=== PATIENT | female | born 1995 | race Caucasian/White ===

== ENCOUNTER 2017-08-29 11:42 | Emergency (ER) | payer BC, MEDICAID ==
--- NOTE | 2017-08-29 11:34 | EDM.PDOCBH ---
ED HPI GENERAL MEDICAL PROBLEM - General Stated Complaint: SUCIDIAL Time Seen by Provider: 08/29/17 10:25 Source of Information: Reports: Patient, EMS History Limitations: Reports: No Limitations - History of Present Illness INITIAL COMMENTS - FREE TEXT/NARRATIVE: 22 y.o.w.f came to the ed by EMS after somebody called the EMS pt attempted suicide. Pt took clonidin and Zyquill and wrote 6 letter to family members she wants to end her life. On arrival, pt stated she is nauseated and did not eat anything since last night. She denies any physical issues or acute medical issues. BP 141/97 HR 102 RR 16 Temp 98 F Pulse ox 98% on RA Onset Date: 08/29/17 Onset Time: 08:00 Duration: Hour(s):, Intermittent Location: Reports: Generalized Quality: Reports: Other (suicidal attemp) Improves with: Reports: None Worsens with: Reports: None Context: Reports: Other (suicidal attempt) Associated Symptoms: Reports: Other (nausea) Treatments [employer]: Reports: Other (see below) (Zyquil and clonipin OD) - Related Data Allergies Allergy/AdvReac Type Severity Reaction Status Date / Time No Known Allergies Allergy Verified 08/29/17 11:36 Home Meds: Home Meds NK [No Known Home Meds] 08/29/17 [History] ED ROS GENERAL - Review of Systems Review Of Systems: See Below Constitutional: Reports: No Symptoms HEENT: Reports: No Symptoms Respiratory: Reports: No Symptoms Cardiovascular: Reports: No Symptoms Endocrine: Reports: No Symptoms GI/Abdominal: Reports: No Symptoms : Reports: No Symptoms Musculoskeletal: Reports: No Symptoms Skin: Reports: No Symptoms Neurological: Reports: No Symptoms Psychiatric: Reports: Suicidal Ideation (attempt) Hematologic/Lymphatic: Reports: No Symptoms Immunologic: Reports: No Symptoms ED EXAM, BEHAVIORAL HEALTH - Physical Exam Exam: See Below Exam Limited By: No Limitations General Appearance: Alert, WD/WN, No Apparent Distress Eye Exam: Bilateral Eye: Normal Inspection Ears: Normal External Exam, Normal Canal Nose: Normal Inspection, Normal Mucosa Throat/Mouth: Normal Inspection, Normal Lips, Normal Teeth, Normal Gums, Normal Oropharynx, Normal Voice, No Airway Compromise Head: Atraumatic, Normocephalic Neck: Normal Inspection, Supple, Non-Tender, Full Range of Motion Respiratory/Chest: No Respiratory Distress, Lungs Clear, Normal Breath Sounds, No Accessory Muscle Use, Chest Non-Tender Cardiovascular: Normal Peripheral Pulses, Regular Rate, Rhythm, No Edema, No Gallop, No JVD, No Murmur GI/Abdominal: Normal Bowel Sounds, Soft, Non-Tender, No Organomegaly, No Distention, No Abnormal Bruit, No Mass, Pelvis Stable (Female) Exam: Deferred Rectal (Female) Exam: Deferred Back Exam: Normal Inspection, Full Range of Motion Extremities: Normal Inspection, Normal Range of Motion, Non-Tender, No Pedal Edema, Normal Capillary Refill Neurological: Alert, Normal Mood/Affect, CN II-XII Intact, Normal Cognition, Normal Gait, Normal Reflexes, No Motor/Sensory Deficits, Oriented x 3 Psychiatric: Alert, Normal Cognition, Oriented, Depressed Mood Skin Exam: Warm, Dry, Intact, Normal color, No rash EKG INTERPRETATION EKG Date: 08/29/17 Time: 14:05 Rhythm: NSR Rate (Beats/Min): 75 Hughes: Normal P-Wave: Present QRS: Normal ST-T: Normal QT: Normal Comparison: NA - No Prior EKG COURSE, BEHAVIORAL HEALTH COMP - Course Vital Signs: Last Vital Signs Temp 36.6 C 08/29/17 11:20 Pulse 89 08/29/17 16:00 Resp 12 08/29/17 16:00 BP 93/62 08/29/17 16:00 Pulse Ox 99 08/29/17 16:00 22 y.o.w.f came to the ed by EMS after somebody called the EMS pt attempted suicide. Pt took clonidin. Tylenol#3, Nyquil and Zyquill and wrote 6 letter to family members she wants to end her life. On arrival, pt stated she is nauseated and did not eat anything since last night. She denies any physical issues or acute medical issues. BP 141/97 HR 102 RR 16 Temp 98 F Pulse ox 98 % on RA PE: 22 y, o w f came by EMS after the police was called about a suicidal attempt , feels nauseated, through up after taking the pills. labs: CBC, BMP nl, UA nl, UDS pos for elevated Acetaminophen level and Pos for tricycles Impression: Suicidal attempt, nausea, UDS pos for acetaminophen and Trycyclics Tx: Tara, Pt was put on a 72 hold Consultation: [facility], will look for placement. 1.50pm Poison Control was called by nurse: Repeat Acetaminophen level 4 hours after ingestion (3.15 pm) Plan: Tranfer to [facility] Orders, Labs, Meds: Active Orders 24 hr Category Date Time Status DRUG SCREEN, URINE ALERE [URCHEM] Stat Lab 08/29/17 13:11 Ordered EKG 12 Lead [EK] Routine Ther 08/29/17 13:58 Ordered Laboratory Tests 08/29/17 08/29/17 08/29/17 Range/Units 11:50 11:50 11:50 WBC 8.4 (4.5-12.0) X10-3/uL RBC 5.03 (3.23-5.20) x10(6)uL Hgb 14.3 (11.5-15.5) g/dL Hct 43.2 (30.0-51.3) % MCV 86.0 (80-96) fL MCH 28.4 (27.7-33.6) pg MCHC 33.1 (32.2-35.4) g/dL RDW 13.5 (11.5-15.5) % Plt Count 299 (125-369) X10(3)uL MPV 8.4 (7.4-10.4) fL Neut % (Auto) 76.2 (46-82) % Lymph % (Auto) 13.9 (13-37) % [place] % (Auto) 8.8 (4-12) % Eos % (Auto) 1 (1.0-5.0) % Baso % (Auto) 1 (0-2) % Neut # (Auto) 6.4 (1.6-8.3) # Lymph # (Auto) 1.2 (0.6-5.0) # [place] # (Auto) 0.7 (0.0-1.3) # Eos # (Auto) 0.0 (0.0-0.8) # Baso # (Auto) 0.1 (0.0-0.2) # Sodium 140 (135-145) mmol/L Potassium 3.8 (3.5-5.3) mmol/L Chloride 104 (100-110) mmol/L Carbon Dioxide 24 (21-32) mmol/L BUN 12 (7-18) mg/dL Creatinine 0.8 (0.55-1.02) mg/dL Est Cr Clr Drug Dosing TNP Estimated GFR (MDRD) > 60 (>60) BUN/Creatinine Ratio 15.0 (9-20) Glucose 89 (80-116) mg/dL Calcium 8.9 (8.6-10.2) mg/dL TSH, Ultra Sensitive 1.96 (0.36-3.74) IU/mL Urine Color (YELLOW) Urine Appearance (CLEAR) Urine pH (5.0-6.5) Ur Specific [place] (1.010-1.025) Urine Protein (NEGATIVE) mg/dL Urine Glucose (UA) (NEGATIVE) mg/dL Urine Ketones (NEGATIVE) mg/dL Urine Occult Blood (NEGATIVE) Urine Nitrite (NEGATIVE) Urine Bilirubin (NEGATIVE) Urine Urobilinogen (NEGATIVE) mg/dL Ur Leukocyte Esterase (NEGATIVE) Urine RBC (0) Urine WBC (0) Ur Squamous Epith Cells (NS,R,O) Urine Bacteria (NS) Urine Mucus (NS) Urine HCG, Qual (NEGATIVE) Salicylates < 2.0 L (2.8-20.0) mg/dL Urine Opiates Screen (NEGATIVE) Ur Oxycodone Screen (NEGATIVE) Ur Propoxyphene Screen (NEGATIVE) Acetaminophen 48 H (10-30) ug/mL Ur Barbituates Screen (NEGATIVE) Ur Tricyclics Screen (NEGATIVE) Ur Phencyclidine Scrn (NEGATIVE) Ur Amphetamine Screen (NEGATIVE) Urine MDMA Screen (NEGATIVE) U Benzodiazepines Scrn (NEGATIVE) U Cocaine Metab Screen (NEGATIVE) U Marijuana (THC) Screen (NEGATIVE) Ethyl Alcohol < 0.03 (<0.03) % 08/29/17 08/29/17 08/29/17 Range/Units 13:11 13:11 13:11 WBC (4.5-12.0) X10-3/uL RBC (3.23-5.20) x10(6)uL Hgb (11.5-15.5) g/dL Hct (30.0-51.3) % MCV (80-96) fL MCH (27.7-33.6) pg MCHC (32.2-35.4) g/dL RDW (11.5-15.5) % Plt Count (125-369) X10(3)uL MPV (7.4-10.4) fL Neut % (Auto) (46-82) % Lymph % (Auto) (13-37) % [place] % (Auto) (4-12) % Eos % (Auto) (1.0-5.0) % Baso % (Auto) (0-2) % Neut # (Auto) (1.6-8.3) # Lymph # (Auto) (0.6-5.0) # [place] # (Auto) (0.0-1.3) # Eos # (Auto) (0.0-0.8) # Baso # (Auto) (0.0-0.2) # Sodium (135-145) mmol/L Potassium (3.5-5.3) mmol/L Chloride (100-110) mmol/L Carbon Dioxide (21-32) mmol/L BUN (7-18) mg/dL Creatinine (0.55-1.02) mg/dL Est Cr Clr Drug Dosing Estimated GFR (MDRD) (>60) BUN/Creatinine Ratio (9-20) Glucose (80-116) mg/dL Calcium (8.6-10.2) mg/dL TSH, Ultra Sensitive (0.36-3.74) IU/mL Urine Color Yellow (YELLOW) Urine Appearance Clear (CLEAR) Urine pH 6.5 (5.0-6.5) Ur Specific [place] 1.015 (1.010-1.025) Urine Protein Negative (NEGATIVE) mg/dL Urine Glucose (UA) Normal (NEGATIVE) mg/dL Urine Ketones Negative (NEGATIVE) mg/dL Urine Occult Blood Negative (NEGATIVE) Urine Nitrite Negative (NEGATIVE) Urine Bilirubin Negative (NEGATIVE) Urine Urobilinogen Normal (NEGATIVE) mg/dL Ur Leukocyte Esterase Negative (NEGATIVE) Urine RBC 0-5 (0) Urine WBC 10-20 H (0) Ur Squamous Epith Cells Moderate H (NS,R,O) Urine Bacteria Occasional H (NS) Urine Mucus Many H (NS) Urine HCG, Qual Negative (NEGATIVE) Salicylates (2.8-20.0) mg/dL Urine Opiates Screen Negative (NEGATIVE) Ur Oxycodone Screen Negative (NEGATIVE) Ur Propoxyphene Screen Negative (NEGATIVE) Acetaminophen (10-30) ug/mL Ur Barbituates Screen Negative (NEGATIVE) Ur Tricyclics Screen Positive H (NEGATIVE) Ur Phencyclidine Scrn Negative (NEGATIVE) Ur Amphetamine Screen Negative (NEGATIVE) Urine MDMA Screen Negative (NEGATIVE) U Benzodiazepines Scrn Negative (NEGATIVE) U Cocaine Metab Screen Negative (NEGATIVE) U Marijuana (THC) Screen Negative (NEGATIVE) Ethyl Alcohol (<0.03) % 08/29/17 Range/Units 15:15 WBC (4.5-12.0) X10-3/uL RBC (3.23-5.20) x10(6)uL Hgb (11.5-15.5) g/dL Hct (30.0-51.3) % MCV (80-96) fL MCH (27.7-33.6) pg MCHC (32.2-35.4) g/dL RDW (11.5-15.5) % Plt Count (125-369) X10(3)uL MPV (7.4-10.4) fL Neut % (Auto) (46-82) % Lymph % (Auto) (13-37) % [place] % (Auto) (4-12) % Eos % (Auto) (1.0-5.0) % Baso % (Auto) (0-2) % Neut # (Auto) (1.6-8.3) # Lymph # (Auto) (0.6-5.0) # [place] # (Auto) (0.0-1.3) # Eos # (Auto) (0.0-0.8) # Baso # (Auto) (0.0-0.2) # Sodium (135-145) mmol/L Potassium (3.5-5.3) mmol/L Chloride (100-110) mmol/L Carbon Dioxide (21-32) mmol/L BUN (7-18) mg/dL Creatinine (0.55-1.02) mg/dL Est Cr Clr Drug Dosing Estimated GFR (MDRD) (>60) BUN/Creatinine Ratio (9-20) Glucose (80-116) mg/dL Calcium (8.6-10.2) mg/dL TSH, Ultra Sensitive (0.36-3.74) IU/mL Urine Color (YELLOW) Urine Appearance (CLEAR) Urine pH (5.0-6.5) Ur Specific [place] (1.010-1.025) Urine Protein (NEGATIVE) mg/dL Urine Glucose (UA) (NEGATIVE) mg/dL Urine Ketones (NEGATIVE) mg/dL Urine Occult Blood (NEGATIVE) Urine Nitrite (NEGATIVE) Urine Bilirubin (NEGATIVE) Urine Urobilinogen (NEGATIVE) mg/dL Ur Leukocyte Esterase (NEGATIVE) Urine RBC (0) Urine WBC (0) Ur Squamous Epith Cells (NS,R,O) Urine Bacteria (NS) Urine Mucus (NS) Urine HCG, Qual (NEGATIVE) Salicylates (2.8-20.0) mg/dL Urine Opiates Screen (NEGATIVE) Ur Oxycodone Screen (NEGATIVE) Ur Propoxyphene Screen (NEGATIVE) Acetaminophen 23 (10-30) ug/mL Ur Barbituates Screen (NEGATIVE) Ur Tricyclics Screen (NEGATIVE) Ur Phencyclidine Scrn (NEGATIVE) Ur Amphetamine Screen (NEGATIVE) Urine MDMA Screen (NEGATIVE) U Benzodiazepines Scrn (NEGATIVE) U Cocaine Metab Screen (NEGATIVE) U Marijuana (THC) Screen (NEGATIVE) Ethyl Alcohol (<0.03) % Medications Discontinued Medications Generic Name Dose Route Start Last Admin Trade Name Freq PRN Reason Stop Dose Admin Sodium Chloride 1,000 mls @ 999 mls/hr 08/29/17 12:04 08/29/17 13:23 Normal Saline IV 08/29/17 13:04 Not Given .BOLUS ONE Sodium Chloride 1,000 mls @ 125 mls/hr 08/29/17 13:00 Normal Saline IV 08/29/17 13:00 ASDIRECTED [facility] Ondansetron HCl 8 mg 08/29/17 11:34 08/29/17 11:46 Zofran Odt PO 08/29/17 11:35 8 mg ONETIME ONE Administration Departure - Departure Time of Disposition: 18:00 Disposition: Home, Self-Care 01 Condition: Good, Fair Clinical Impression: Depressive disorder - Discharge Information Referrals: PCP,None [Primary Care Provider] - Forms: ED Department Discharge - My Orders Last 24 Hours: My Active Orders 08/29/17 13:11 DRUG SCREEN, URINE ALERE [URCHEM] Stat 08/29/17 13:58 EKG 12 Lead [EK] Routine - Assessment/Plan Last 24 Hours: My Active Orders 08/29/17 13:11 DRUG SCREEN, URINE ALERE [URCHEM] Stat 08/29/17 13:58 EKG 12 Lead [EK] Routine
[~2017-08-29 11:42] MED LIST: Ondansetron 8 MG Tab.DIS PO ONE
[2017-08-29] MEDS ORDERED: Sodium Chloride 0.9% 1,000 ML IV ONE (12:04)
[2017-08-29 12:12] LABS: ACETAMINOPHEN 48 ug/mL (10-30)
[2017-08-29] MEDS ORDERED: Sodium Chloride 0.9% 1,000 ML IV SCH (13:00)
== END 2017-08-29 16:30 | disposition home or self-care (01) ==
LOC: FB.ED 11:42
DX: F32.9 Major depressive disorder, single episode, unspecified (principal); T14.91XA Suicide attempt, initial encounter
CPT/HCPCS: 36415; 80048; 80305; 81001; 81025; 84443; 85025; 93005; 99285; A9270; G0480

== ENCOUNTER 2017-11-21 10:58 | Emergency (ER) | payer MEDICAID ==
[2017-11-21] MEDS ORDERED: diphenhydrAMINE 50 MG/ML SDV IM ONE (11:55)
[2017-11-21] MEDS ORDERED: Ketorolac 60 MG/2 ML SDV IM ONE (11:56)
--- NOTE | 2017-11-21 11:59 | EDM.PDOC ---
ED HPI GENERAL MEDICAL PROBLEM - General Chief Complaint: Headache Stated Complaint: migraine Time Seen by Provider: 11/21/17 11:56 Source of Information: Reports: Patient History Limitations: Reports: No Limitations - History of Present Illness INITIAL COMMENTS - FREE TEXT/NARRATIVE: Presents with frontal headache associated w/ N/V and photophobia since yesterday. Has h/o Migraine, this is typical presentation. Patient states she usually receives a "migraine cocktail" at [place]. Also states Imitrex does not usually help. Duration: Day(s): (2) Location: Reports: Head Severity: Moderate Associated Symptoms: Reports: Nausea/Vomiting headache Pain Score (Numeric/FACES): 7 - Related Data Allergies Allergy/AdvReac Type Severity Reaction Status Date / Time No Known Allergies Allergy Verified 08/29/17 11:36 Home Meds: Home Meds FLUoxetine HCl [Prozac] 40 mg PO DAILY 11/21/17 [History] Zolpidem Tartrate [Ambien] 10 mg PO BEDTIME 11/21/17 [History] Past Medical History HEENT History: Reports: Impaired Vision Respiratory History: Reports: None Gastrointestinal History: Reports: None Genitourinary History: Reports: None BROKER IN CHARGE History: Reports: Other BROKER IN CHARGE History: II PARA II Musculoskeletal History: Reports: None Neurological History: Reports: Migraines Psychiatric History: Reports: Anxiety, Depression Endocrine/Metabolic History: Reports: None Hematologic History: Reports: None Immunologic History: Reports: None Oncologic (Cancer) History: Reports: None Dermatologic History: Reports: None - Infectious Disease History Infectious Disease History: Reports: None - Past Surgical History Head Surgeries/Procedures: Reports: None HEENT Surgical History: Reports: Tonsillectomy Cardiovascular Surgical History: Reports: None Respiratory Surgical History: Reports: None Endocrine Surgical History: Reports: None Musculoskeletal Surgical History: Reports: Other (See Below) Other Musculoskeletal Surgeries/Procedures:: GROWTH REMOVED ON TOP OF LEFT FOOT. Social & Family History - Tobacco Use Smoking Status *Q: Former Smoker Used Tobacco, but Quit: Yes Month/Year Tobacco Last Used: 2017 - Caffeine Use Caffeine Use: Reports: Coffee, Tea - Alcohol Use Alcohol Use History: Yes Alcohol Use Frequency: Rarely - Recreational Drug Use Recreational Drug Use: No ED ROS GENERAL - Review of Systems Review Of Systems: ROS reveals no pertinent complaints other than HPI. - Physical Exam Exam: See Below Exam Limited By: No Limitations General Appearance: Alert, WD/WN, No Apparent Distress Eye Exam: Bilateral Eye: EOMI, PERRL Ears: Normal External Exam Nose: Normal Inspection Throat/Mouth: No Airway Compromise Head Exam: Atraumatic, Normocephalic Neck: Supple Respiratory/Chest: No Respiratory Distress, Lungs Clear, Normal Breath Sounds Cardiovascular: Regular Rate, Rhythm, No Murmur Neuro Exam (Abbreviated): Alert, Oriented, Normal Cognition, No Motor/Sensory Deficits Extremities: Normal Range of Motion Psychiatric: Normal Affect, Normal Mood Skin Exam: Warm, Dry, Intact Course - Vital Signs Last Recorded V/S: Last Vital Signs Temp 36.9 C 11/21/17 11:45 Pulse 76 11/21/17 11:18 Resp 16 11/21/17 11:45 BP 128/73 11/21/17 11:45 Pulse Ox 99 11/21/17 11:45 - Orders/Labs/Meds Meds: Medications Discontinued Medications Generic Name Dose Route Start Last Admin Trade Name Lillian PRN Reason Stop Dose Admin Diphenhydramine HCl 25 mg 11/21/17 11:55 11/21/17 12:00 Benadryl IM 11/21/17 11:56 25 mg ONETIME ONE Administration Ketorolac Tromethamine 60 mg 11/21/17 11:56 11/21/17 12:01 Toradol IM 11/21/17 11:57 60 mg ONETIME ONE Administration Ondansetron HCl 8 mg 11/21/17 12:36 11/21/17 12:39 Zofran Odt PO 11/21/17 12:37 8 mg ONETIME ONE Administration - Re-Assessments/Exams Free Text/Narrative Re-Assessment/Exam: 11/21/17 12:43 Symptoms have improved Departure - Departure Time of Disposition: 12:44 Disposition: Home, Self-Care 01 Condition: Good Clinical Impression: Migraine - Discharge Information *PRESCRIPTION DRUG MONITORING PROGRAM REVIEWED*: Yes *COPY OF PRESCRIPTION DRUG MONITORING REPORT IN PATIENT JULIO: No Instructions: Migraine Headache, [id number] Forms: ED Department Discharge Additional Instructions: Rest, drink plenty of fluids, follow up with your primary physician in 2-3 days , return to the ER as needed.
[2017-11-21] MEDS ORDERED: Ondansetron 8 MG Tab.DIS PO ONE (12:36)
== END 2017-11-21 12:45 | disposition home or self-care (01) ==
LOC: FB.ED 10:58
DX: G43.909 Migraine, unspecified, not intractable, without status migrainosus (principal); Z87.891 Personal history of nicotine dependence
CPT/HCPCS: 96372; 99283; A9270-GY; J1200; J1885